=== PATIENT | female | born 2000 | race Hispanic/Latino ===

== ENCOUNTER → 2024-02-02 13:12 | Outpatient (REF) | payer BC, SELFPAY | LOC: PAVMRI 13:12 | PROVIDERS: ATTENDING PHYSICIAN Psychiatry & Neurology Neurology | DX: G43.909 Migraine, unspecified, not intractable, without status migrainosus (principal) | CPT/HCPCS: 70551 ==

== ENCOUNTER → 2024-10-17 07:09 | Outpatient (REF) | payer BC, SELFPAY | LOC: HWRAD 07:09 | PROVIDERS: ATTENDING PHYSICIAN Nurse Practitioner Adult Health | DX: R22.31 Localized swelling, mass and lump, right upper limb (principal) | CPT/HCPCS: 76882 ==